=== PATIENT | male | born 1955 | race Caucasian/White ===

== ENCOUNTER 2024-07-29 16:11 | Emergency (ER) | payer MEDICARE ==
[~2024-07-29] VITALS: Ht 177.8 cm; Wt 90.7 kg
[2024-07-29] MEDS ORDERED: Diphth,Pertuss(Acell),Tet Vac 0.5 ML VIAL IM ONE (16:55)
[2024-07-29] MEDS ORDERED: Trimethoprim/Sulfamethoxazole DS Tab PO ONE (17:35)
[2024-07-29] MEDS ORDERED: SULTRIDS PO (17:47)
== END 2024-07-29 18:09 | disposition home or self-care (01) ==
LOC: ER 16:11
DX: L02.413 Cutaneous abscess of right upper limb (principal); E11.65 Type 2 diabetes mellitus with hyperglycemia
CPT/HCPCS: 10060; 82947; 87070; 87075; 87077; 87147; 87185; 87186; 87205; 90471; 90715; 99283-25; A9270

== ENCOUNTER 2024-12-25 12:16 | Emergency (ER) | payer MEDICARE ==
[~2024-12-25] VITALS: Ht 177.8 cm; Wt 86.2 kg
[2024-12-25 13:07] LABS: BASOPHILS ABSOLUTE AUTO 0.02 K/mm3 (0.00-0.23); BASOPHILS PERCENT AUTO 0 % (0-2); EOSINOPHILS ABSOLUTE AUTO 0.01 K/mm3 (0.00-0.68); EOSINOPHILS PERCENT AUTO 0 % (0-6); Hematocrit 31.1 % (37.0-53.0); Hemoglobin 10.5 g/dL (13.5-17.5); IMMATURE GRAN ABSOLUTE AUTO 0.05 K/mm3 (0.00-0.10); IMMATURE GRAN PERCENT AUTO 1 % (0-1); LYMPHOCYTES ABSOLUTE AUTO 0.57 K/mm3 (0.84-5.20); LYMPHOCYTES PERCENT AUTO 8 % (21-46); MONOCYTES ABSOLUTE AUTO 0.50 K/mm3 (0.16-1.47); MONOCYTES PERCENT AUTO 7 % (4-13); Mean Corpuscular HGB Conc 33.8 g/dL (31.5-36.5); Mean Corpuscular Volume 93 fL (80-100); NEUTROPHILS ABSOLUTE AUTO 6.24 K/mm3 (1.96-9.15); NEUTROPHILS PERCENT AUTO 84 % (41-73); NRBC ABSOLUTE 0.00 K/mm3 (0.00-0.02); NRBC Auto 0.0 /100 WBC (0.0-0.2); Platelet Count 97 K/mm3 (150-400); RDW Coefficient Variation 13.9 % (11.7-14.2); RDW Standard Deviation 46.6 fL (35.1-46.3); pH Blood Venous 7.27 (7.34-7.37)
[2024-12-25 14:21] LABS: Alanine Aminotransfer (ALT/SGP 57.0 U/L (12-78); Albumin, Blood 2.7 g/dL (3.4-5.0); Albumin/Globulin Ratio 1.0 (0.8-1.8); Anion Gap 12.0 mmol/L (3-11); Aspartate Aminotrans (AST/SGOT 50.0 U/L (12-37); Bilirubin, Total 1.1 mg/dL (0.1-1.0); Blood Urea Nitrogen 54.0 mg/dL (8-24); CO2, Blood 21.0 mmol/L (21-32); Calcium, Blood 9.0 mg/dL (8.5-10.1); Chloride, Blood 107.0 mmol/L (98-108); Creatinine, Blood 0.76 mg/dL (0.60-1.20); Globulin, Blood 2.8 g/dL (2.2-4.0); Glucose, Blood 406.0 mg/dL (70-99); Potassium, Blood 5.3 mmol/L (3.5-5.5); Sodium, Blood 135.0 mmol/L (136-145); Total Protein, Blood 5.5 g/dL (6.4-8.2)
[2024-12-25] MEDS ORDERED: Insulin Human Lispro 100 Units/ML 3ML Syringe SC ONE ×2 (14:45→16:35)
[2024-12-25] MEDS ORDERED: Insulin Glargine-Yfgn 100 Unit/mL 3 ML SYR SC ONE (14:45)
[2024-12-25] MEDS ORDERED: Insulin Glargine 100 Unit/ML 3 ML SYR SC ONE (14:50)
== END 2024-12-25 18:04 | disposition home or self-care (01) ==
LOC: ER 12:16
PROVIDERS: Physician Assistant
DX: E11.65 Type 2 diabetes mellitus with hyperglycemia (principal); E11.10 Type 2 diabetes mellitus with ketoacidosis without coma; L02.415 Cutaneous abscess of right lower limb
CPT/HCPCS: 80053; 82010; 82803; 82947; 83735; 85025; 93005; 93010; 99285-25; J1815

== ENCOUNTER 2024-12-25 23:02 | Emergency (ER) | payer MEDICARE ==
[~2024-12-25] VITALS: Ht 177.8 cm; Wt 89.4 kg
[2024-12-25] MEDS ORDERED: Metoclopramide HCl 5MG / ML 2ML Vial IV ONE (23:20)
[2024-12-25] MEDS ORDERED: Pantoprazole Sodium 40 MG Injection IV ONE (23:25)
[2024-12-25] MEDS ORDERED: CefTRIAXone Sodium 1,000 MG in NS 50 ML IV ONE (23:25)
[2024-12-25] MEDS ORDERED: Octreotide Acetate 500 MCG in NS 250 ML IV SCH (23:25)
[2024-12-25 23:27] LABS: BASOPHILS ABSOLUTE AUTO 0.05 K/mm3 (0.00-0.23); BASOPHILS PERCENT AUTO 0 % (0-2); EOSINOPHILS ABSOLUTE AUTO 0.07 K/mm3 (0.00-0.68); EOSINOPHILS PERCENT AUTO 1 % (0-6); Hematocrit 26.6 % (37.0-53.0); Hemoglobin 9.0 g/dL (13.5-17.5); IMMATURE GRAN ABSOLUTE AUTO 0.11 K/mm3 (0.00-0.10); IMMATURE GRAN PERCENT AUTO 1 % (0-1); LYMPHOCYTES ABSOLUTE AUTO 2.43 K/mm3 (0.84-5.20); LYMPHOCYTES PERCENT AUTO 16 % (21-46); MONOCYTES ABSOLUTE AUTO 1.89 K/mm3 (0.16-1.47); MONOCYTES PERCENT AUTO 13 % (4-13); Mean Corpuscular HGB Conc 33.8 g/dL (31.5-36.5); Mean Corpuscular Volume 92 fL (80-100); NEUTROPHILS ABSOLUTE AUTO 10.29 K/mm3 (1.96-9.15); NEUTROPHILS PERCENT AUTO 69 % (41-73); NRBC ABSOLUTE 0.00 K/mm3 (0.00-0.02); NRBC Auto 0.0 /100 WBC (0.0-0.2); Platelet Count 164 K/mm3 (150-400); RDW Coefficient Variation 14.3 % (11.7-14.2); RDW Standard Deviation 47.8 fL (35.1-46.3)
[2024-12-25 23:27] LABS: pH Blood Venous 7.35 (7.34-7.37)
[2024-12-25 23:42] LABS: Magnesium, Blood 2.1 mg/dL (1.6-2.4); Prothrombin Time Results 13.8 Sec (9.7-11.5)
[2024-12-25 23:43] LABS: Alanine Aminotransfer (ALT/SGP 49.0 U/L (12-78); Albumin, Blood 2.5 g/dL (3.4-5.0); Albumin/Globulin Ratio 1.0 (0.8-1.8); Anion Gap 17.0 mmol/L (3-11); Aspartate Aminotrans (AST/SGOT 38.0 U/L (12-37); Bilirubin, Total 1.0 mg/dL (0.1-1.0); Blood Urea Nitrogen 56.0 mg/dL (8-24); CO2, Blood 18.0 mmol/L (21-32); Calcium, Blood 9.1 mg/dL (8.5-10.1); Chloride, Blood 103.0 mmol/L (98-108); Creatinine, Blood 0.88 mg/dL (0.60-1.20); Globulin, Blood 2.4 g/dL (2.2-4.0); Glucose, Blood 451.0 mg/dL (70-99); Potassium, Blood 4.8 mmol/L (3.5-5.5); Sodium, Blood 133.0 mmol/L (136-145); Total Protein, Blood 4.9 g/dL (6.4-8.2)
[2024-12-26] MEDS ORDERED: Insulin Regular 100 Unit/ML 1ML Dose IV ONE (00:30)
[2024-12-26 02:47] LABS: Calcium, Ionized (POC) 1.25 mmol/L (1.10-1.46); Chloride (POC) 101 mmol/L (98-108); Creatinine (POC) 0.9 mg/dL (0.8-1.3); Glucose (ISTAT POC) 380 mg/dL (70-99); Hematocrit (POC) 20.0 % (41.0-53.0); Hemoglobin (POC) 6.8 g/dL (13.5-17.5); Potassium (POC) 5.3 mmol/L (3.5-5.5); Sodium (POC) 133 mmol/L (135-148); Total CO2 (POC) 17 mmol/L (21-32)
[2024-12-26 02:56] LABS: Hematocrit 22.0 % (37.0-53.0); Hemoglobin 7.6 g/dL (13.5-17.5); Mean Corpuscular HGB Conc 34.5 g/dL (31.5-36.5); Mean Corpuscular Volume 91 fL (80-100); NRBC ABSOLUTE 0.00 K/mm3 (0.00-0.02); NRBC Auto 0.0 /100 WBC (0.0-0.2); Platelet Count 123 K/mm3 (150-400); RDW Coefficient Variation 14.2 % (11.7-14.2); RDW Standard Deviation 47.0 fL (35.1-46.3)
[2024-12-26] MEDS ORDERED: NS 1,000 ML IV SCH (03:55)
== END 2024-12-26 05:15 | disposition home or self-care (01) ==
LOC: ER 23:02
PROVIDERS: Student in an Organized Health Care Education/Training Program
DX: K92.0 Hematemesis (principal); K92.1 Melena; D62 Acute posthemorrhagic anemia; E11.65 Type 2 diabetes mellitus with hyperglycemia; K74.60 Unspecified cirrhosis of liver; Z88.0 Allergy status to penicillin; Z79.899 Other long term (current) drug therapy
CPT/HCPCS: 36430; 74177; 80047; 80053; 82010; 82803; 82947; 83690; 83735; 85014; 85025; 85027; 85610; 85730; 86850; 86900; 86901; 86923; 93005; 93010; 96365; 96366; 96368; 96375; 96376; 99285-25; J0696; J1790; J1815; J2354; J2470; J2765; J7030; J7050; J7120; P9016; Q9967

== ENCOUNTER → 2024-12-25 | Outpatient (CLI) | payer MEDICARE ==
[~2024-12-25] MED LIST: SULTRIDS PO
[2024-12-25 10:59] LABS: BASOPHILS ABSOLUTE AUTO 0.03 K/mm3 (0.00-0.23); BASOPHILS PERCENT AUTO 0 % (0-2); EOSINOPHILS ABSOLUTE AUTO 0.01 K/mm3 (0.00-0.68); EOSINOPHILS PERCENT AUTO 0 % (0-6); Hematocrit 31.7 % (37.0-53.0); Hemoglobin 10.9 g/dL (13.5-17.5); IMMATURE GRAN ABSOLUTE AUTO 0.08 K/mm3 (0.00-0.10); IMMATURE GRAN PERCENT AUTO 1 % (0-1); LYMPHOCYTES ABSOLUTE AUTO 0.88 K/mm3 (0.84-5.20); LYMPHOCYTES PERCENT AUTO 10 % (21-46); MONOCYTES ABSOLUTE AUTO 0.51 K/mm3 (0.16-1.47); MONOCYTES PERCENT AUTO 6 % (4-13); Mean Corpuscular HGB Conc 34.4 g/dL (31.5-36.5); Mean Corpuscular Volume 89 fL (80-100); NEUTROPHILS ABSOLUTE AUTO 7.15 K/mm3 (1.96-9.15); NEUTROPHILS PERCENT AUTO 83 % (41-73); NRBC ABSOLUTE 0.00 K/mm3 (0.00-0.02); NRBC Auto 0.0 /100 WBC (0.0-0.2); Platelet Count 125 K/mm3 (150-400); RDW Coefficient Variation 13.7 % (11.7-14.2); RDW Standard Deviation 44.8 fL (35.1-46.3)
[2024-12-25 11:08] LABS: Alanine Aminotransfer (ALT/SGP 57.0 U/L (12-78); Albumin, Blood 2.7 g/dL (3.4-5.0); Albumin/Globulin Ratio 0.9 (0.8-1.8); Anion Gap 20.0 mmol/L (6-16); Aspartate Aminotrans (AST/SGOT 46.0 U/L (12-37); Bilirubin, Total 1.3 mg/dL (0.1-1.0); Blood Urea Nitrogen 58.0 mg/dL (8-24); CO2, Blood 20.0 mmol/L (21-32); Calcium, Blood 9.5 mg/dL (8.5-10.1); Chloride, Blood 102.0 mmol/L (98-108); Creatinine, Blood 1.27 mg/dL (0.60-1.20); Globulin, Blood 3.1 g/dL (2.2-4.0); Glucose, Blood 438.0 mg/dL (70-99); Potassium, Blood 5.4 mmol/L (3.5-5.5); Sodium, Blood 137.0 mmol/L (136-145); Total Protein, Blood 5.8 g/dL (6.4-8.2)
== END | disposition home or self-care (01) ==
LOC: LAB SHORT 10:55 → LAB 10:55
PROVIDERS: Family Medicine
DX: E11.65 Type 2 diabetes mellitus with hyperglycemia (principal)
CPT/HCPCS: 80053; 83735; 85025

== ENCOUNTER 2025-02-09 15:57 | Observation (INO) | payer MEDICARE ==
[~2025-02-09] VITALS: Ht 177.8 cm; Wt 78.6 kg
[2025-02-09 16:31] LABS: BASOPHILS ABSOLUTE AUTO 0.02 K/mm3 (0.00-0.23); BASOPHILS PERCENT AUTO 1 % (0-2); EOSINOPHILS ABSOLUTE AUTO 0.04 K/mm3 (0.00-0.68); EOSINOPHILS PERCENT AUTO 2 % (0-6); Hematocrit 30.6 % (37.0-53.0); Hemoglobin 10.0 g/dL (13.5-17.5); IMMATURE GRAN ABSOLUTE AUTO 0.01 K/mm3 (0.00-0.10); IMMATURE GRAN PERCENT AUTO 0 % (0-1); LYMPHOCYTES ABSOLUTE AUTO 0.48 K/mm3 (0.84-5.20); LYMPHOCYTES PERCENT AUTO 19 % (21-46); MONOCYTES ABSOLUTE AUTO 0.23 K/mm3 (0.16-1.47); MONOCYTES PERCENT AUTO 9 % (4-13); Mean Corpuscular HGB Conc 32.7 g/dL (31.5-36.5); Mean Corpuscular Volume 94 fL (80-100); NEUTROPHILS ABSOLUTE AUTO 1.79 K/mm3 (1.96-9.15); NEUTROPHILS PERCENT AUTO 70 % (41-73); NRBC ABSOLUTE 0.00 K/mm3 (0.00-0.02); NRBC Auto 0.0 /100 WBC (0.0-0.2); Platelet Count 72 K/mm3 (150-400); RDW Coefficient Variation 14.9 % (11.7-14.2); RDW Standard Deviation 51.8 fL (35.1-46.3)
[2025-02-09 16:54] LABS: Alanine Aminotransfer (ALT/SGP 50.0 U/L (12-78); Albumin, Blood 3.2 g/dL (3.4-5.0); Albumin/Globulin Ratio 0.9 (0.8-1.8); Anion Gap 13.0 mmol/L (3-11); Aspartate Aminotrans (AST/SGOT 50.0 U/L (12-37); Bilirubin, Total 0.7 mg/dL (0.1-1.0); Blood Urea Nitrogen 31.0 mg/dL (8-24); CO2, Blood 20.0 mmol/L (21-32); Calcium, Blood 9.4 mg/dL (8.5-10.1); Chloride, Blood 108.0 mmol/L (98-108); Creatinine, Blood 0.89 mg/dL (0.60-1.20); Globulin, Blood 3.6 g/dL (2.2-4.0); Glucose, Blood 280.0 mg/dL (70-99); Potassium, Blood 3.7 mmol/L (3.5-5.5); Sodium, Blood 137.0 mmol/L (136-145); Total Protein, Blood 6.8 g/dL (6.4-8.2)
[2025-02-09 17:02] LABS: Source, Urine Clean Catch
[2025-02-09] MEDS ORDERED: NS 1,000 ML IV SCH ×2 (17:10→18:55)
[2025-02-09 17:18] LABS: Bilirubin, Urine Neg (Neg); Glucose Qualitative, Urine 2+ (Neg); Ketones, Urine Neg (Neg); Leukocyte Esterase, Urine Neg (Neg); Protein, Urine Neg (Neg); Specific Gravity, Urine 1.010 (1.003-1.022); Urobilinogen, Urine NORM (Normal)
[2025-02-09 17:27] LABS: Color, Urine Pale Yellow (P-Yellow)
[2025-02-09] MEDS ORDERED: SENNA LAXATIVE8.6 MG PO (17:49)
[2025-02-09] MEDS ORDERED: FOLI1 PO (17:49)
[2025-02-09] MEDS ORDERED: AMARYL4 M1 PO (17:50)
[2025-02-09] MEDS ORDERED: SPIR50 PO (17:51)
[2025-02-09] MEDS ORDERED: PANT40 PO ×2 (17:51→22:04)
[2025-02-09] MEDS ORDERED: INSULANPEN SC ×2 (17:51→21:03)
[2025-02-09] MEDS ORDERED: TORSE20 PO (17:52)
[2025-02-09] MEDS ORDERED: GABA100 PO (17:52)
[2025-02-09] MEDS ORDERED: METF500 PO (17:55)
[2025-02-09] MEDS ORDERED: LACT10SY PO ×2 (17:55→21:04)
[2025-02-09] MEDS ORDERED: MULTIPLE VITAM1 EACH PO (17:55)
[2025-02-09] MEDS ORDERED: TAMS.4ER PO (17:56)
[2025-02-09] MEDS ORDERED: Vitamin B-150 MG (17:56)
[2025-02-09] MEDS ORDERED: Prinivil10 MG PO (17:56)
[2025-02-09] MEDS ORDERED: Ondansetron HCl 2 MG / ML 2ML Vial IV PRN (18:55)
[2025-02-09] MEDS ORDERED: FLU VACC TS2025(65UP)/MF59C/PF 45 MCG/0.5 ML SYRINGE IM SCH (19:10)
--- NOTE | 2025-02-09 20:26 | NUR ---
RECEIVED REPORT FROM ED SHRUTHI REYES.
[2025-02-09 20:50] VITALS: BP 141/60
--- NOTE | 2025-02-09 20:50 | NUR ---
PT ARRIVED TO ROOM 345 AT 2049. HERE FOR ALTERED MENTAL STATUS/HEPATIC ENCEPHALOPATHY. A&OX1 TO SELF ONLY, CONFUSED AT TIMES. 1PA W FWW TO BSC. INTERMITTENTLY INCONTINENT. LAST BM 02/09. L HAND PIV, CURRENTLY RUNNING NS @ 75 X 1 BAG. ON ROOM AIR. HE HAS A R MILLAN WOUND/ULCER. SEEING WOUND CARE AT HOME. WOUND CARE ORDER PLACED. NEW DRESSING PLACED ON ADMISSION WITH CALCIUM ALGINATE AND MEPILEX. CONSISTENT CARB DIET. ACHS. 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 SPEECH IS SLOW BUT APPROPRIATE. LACTIC ACID DOWN TO 2.7 FROM 5.0. SKIN IS SLIGHTLY JAUNDICED. NO ABDOMINAL DISTENTION NOTED. AMMONIA IS HIGH AT 84. RECENTLY DISCHARGED FROM [facility] FOR UGI SIMILAR PROBLEMS. (STEVE) AT BEDSIDE. VSS. BED IN LOWEST POSITION. BED ALARM ON. CALL LIGHT IN REACH.
[2025-02-09] MEDS ORDERED: Insulin Human Lispro 100 Units/ML 3ML Syringe SC SCH (21:00)
[2025-02-09] MEDS ORDERED: Insulin Glargine-Yfgn 100 Unit/mL 3 ML SYR SC SCH (21:00)
[2025-02-09] MEDS ORDERED: TRAZ50 PO (21:06)
[2025-02-09] MEDS ORDERED: VITAMIN B-1250 MG PO (21:07)
[2025-02-09] MEDS ORDERED: PIOG15 PO (21:08)
[2025-02-09] MEDS ORDERED: SOLI5 (21:09)
[2025-02-10 03:23] VITALS: BP 131/66
--- NOTE | 2025-02-10 04:30 | NUR ---
PT REMAINS A&OX1, TO SELF ONLY. STILL CONFUSED AT TIMES BUT VERY PLEASANT AND COOPERATIVE WITH CARES. SLEPT MOST OF THE NIGHT. VERY HARD OF HEARING WHEN HEARING AIDS ARE OUT. AT BEDSIDE THROUGHOUT THE NIGHT AND VERY ATTENTIVE TO PT. NEW L WRIST PIV RUNNING NS AT 75 X 1 BAG. VSS. BED IN LOWEST POSITION. CALL LIGHT IN REACH.
--- NOTE | 2025-02-10 04:34 | NUR ---
SHIFT SUMMARY PT ALERT AND ORIENTED. VERY PLEASANT AND COOPERATIVE WITH CARES. ABLE TO MAKE NEEDS KNOWN. PT SLEPT MOST OF THE NIGHT. PT INDEPENDENT IN ROOM. DENIES PAIN. USING URINAL APPROPRIATELY. VSS. BED IN LOWEST POSITION. CALL LIGHT WITHIN REACH.
[2025-02-10 05:35] LABS: Hematocrit 29.5 % (37.0-53.0); Hemoglobin 9.8 g/dL (13.5-17.5); Mean Corpuscular HGB Conc 33.2 g/dL (31.5-36.5); Mean Corpuscular Volume 91 fL (80-100); NRBC ABSOLUTE 0.00 K/mm3 (0.00-0.02); NRBC Auto 0.0 /100 WBC (0.0-0.2); Platelet Count 66 K/mm3 (150-400); RDW Coefficient Variation 14.6 % (11.7-14.2); RDW Standard Deviation 49.7 fL (35.1-46.3)
[2025-02-10 07:33] VITALS: BP 129/71
[2025-02-10] MEDS ORDERED: Folic Acid 1 MG TAB PO SCH (09:00)
[2025-02-10] MEDS ORDERED: Enoxaparin 40 MG/0.4 ML SYR SC SCH (09:00)
[2025-02-10 16:21] VITALS: BP 125/83
== END 2025-02-10 17:22 | disposition home or self-care (01) ==
LOC: ER 15:57 → MEDS 15:58
PROVIDERS: Emergency Medicine; Nurse Practitioner Acute Care; ADMIT Internal Medicine
DX: K76.82 Hepatic encephalopathy (principal); K70.40 Alcoholic hepatic failure without coma; K70.30 Alcoholic cirrhosis of liver without ascites; E11.65 Type 2 diabetes mellitus with hyperglycemia; D61.818 Other pancytopenia; N40.0 Benign prostatic hyperplasia without lower urinary tract symptoms; I10 Essential (primary) hypertension; E87.20 Acidosis, unspecified; Z79.4 Long term (current) use of insulin; Z79.84 Long term (current) use of oral hypoglycemic drugs; Z79.899 Other long term (current) drug therapy; Z88.0 Allergy status to penicillin
CPT/HCPCS: 36415; 80053; 81003; 82140; 82947; 83605; 85025; 85027; 86850; 86900; 86901; 93005; 93010; 96360; 96372; 99285-25; A9270; G0378; J1650; J1815; J7030

== ENCOUNTER 2025-02-15 10:39 | Observation (INO) | payer MEDICARE ==
[~2025-02-15] VITALS: Ht 182.9 cm; Wt 81.7 kg
[~2025-02-15 10:39] MED LIST changes: +AMARYL4 M1 PO; +FOLI1 PO; +GABA100 PO; +INSULANPEN SC; +LACT10SY PO; +METF500 PO; +MULTIPLE VITAM1 EACH PO; +PANT40 PO; +PIOG15 PO; +Prinivil10 MG PO; +SENNA LAXATIVE8.6 MG PO; +SOLI5; +SPIR50 PO; +TAMS.4ER PO; +TORSE20 PO; +TRAZ50 PO; +VITAMIN B-1250 MG PO; +Vitamin B-150 MG
[2025-02-15 12:28] LABS: BASOPHILS ABSOLUTE AUTO 0.02 K/mm3 (0.00-0.23); BASOPHILS PERCENT AUTO 1 % (0-2); EOSINOPHILS ABSOLUTE AUTO 0.08 K/mm3 (0.00-0.68); EOSINOPHILS PERCENT AUTO 3 % (0-6); Hematocrit 34.4 % (37.0-53.0); Hemoglobin 11.4 g/dL (13.5-17.5); IMMATURE GRAN ABSOLUTE AUTO 0.01 K/mm3 (0.00-0.10); IMMATURE GRAN PERCENT AUTO 0 % (0-1); LYMPHOCYTES ABSOLUTE AUTO 0.54 K/mm3 (0.84-5.20); LYMPHOCYTES PERCENT AUTO 21 % (21-46); MONOCYTES ABSOLUTE AUTO 0.33 K/mm3 (0.16-1.47); MONOCYTES PERCENT AUTO 13 % (4-13); Mean Corpuscular HGB Conc 33.1 g/dL (31.5-36.5); Mean Corpuscular Volume 91 fL (80-100); NEUTROPHILS ABSOLUTE AUTO 1.66 K/mm3 (1.96-9.15); NEUTROPHILS PERCENT AUTO 63 % (41-73); NRBC ABSOLUTE 0.00 K/mm3 (0.00-0.02); NRBC Auto 0.0 /100 WBC (0.0-0.2); Platelet Count 64 K/mm3 (150-400); RDW Coefficient Variation 14.2 % (11.7-14.2); RDW Standard Deviation 47.8 fL (35.1-46.3)
[2025-02-15 12:46] LABS: Alanine Aminotransfer (ALT/SGP 64.0 U/L (12-78); Albumin, Blood 3.3 g/dL (3.4-5.0); Albumin/Globulin Ratio 0.9 (0.8-1.8); Anion Gap 9.0 mmol/L (3-11); Aspartate Aminotrans (AST/SGOT 54.0 U/L (12-37); Bilirubin, Total 1.2 mg/dL (0.1-1.0); Blood Urea Nitrogen 18.0 mg/dL (8-24); CO2, Blood 22.0 mmol/L (21-32); Calcium, Blood 9.5 mg/dL (8.5-10.1); Chloride, Blood 113.0 mmol/L (98-108); Creatinine, Blood 0.75 mg/dL (0.60-1.20); Globulin, Blood 3.5 g/dL (2.2-4.0); Glucose, Blood 188.0 mg/dL (70-99); Potassium, Blood 4.0 mmol/L (3.5-5.5); Sodium, Blood 140.0 mmol/L (136-145); Total Protein, Blood 6.8 g/dL (6.4-8.2)
[2025-02-15 12:54] LABS: Source, Urine Clean Catch
[2025-02-15 13:04] LABS: Bilirubin, Urine Neg (Neg); Color, Urine Yellow (P-Yellow); Glucose Qualitative, Urine Neg (Neg); Ketones, Urine Neg (Neg); Leukocyte Esterase, Urine Neg (Neg); Protein, Urine Neg (Neg); Specific Gravity, Urine 1.015 (1.003-1.022); Urobilinogen, Urine NORM (Normal)
[2025-02-15] MEDS ORDERED: FLU VACC TS2025(65UP)/MF59C/PF 45 MCG/0.5 ML SYRINGE IM SCH (16:15)
[2025-02-15 20:20] VITALS: BP 135/52
[2025-02-16 03:37] VITALS: BP 139/67
--- NOTE | 2025-02-16 04:49 | NUR ---
Floor admission/shift summary: Received this 69 yo male from the ED during the start of the shift. Pt is alert and upright, speech is clear and is able to make adequate needs known. He is A&O to self place & family members with him at the time of admission to the floor, he is mixed-up with the date time and situation, pt. is pleasant and in good spirits, he denies any acute GI/generalized pain/discomfort, all his VS are w/in his baseline readings, he is able to stand and pivot from the gurney to his bed with moderate assist and guidance of 1 staff, he is continent of both B&B, he tolerated restaurant meal provided & po fluids well, continent of both B&B. Pt. is stable & in good spirits, resting with his call garland in reach & his spent the entire night with the pt.
[2025-02-16 06:32] LABS: BASOPHILS ABSOLUTE AUTO 0.02 K/mm3 (0.00-0.23); BASOPHILS PERCENT AUTO 1 % (0-2); EOSINOPHILS ABSOLUTE AUTO 0.06 K/mm3 (0.00-0.68); EOSINOPHILS PERCENT AUTO 3 % (0-6); Hematocrit 29.8 % (37.0-53.0); Hemoglobin 10.2 g/dL (13.5-17.5); IMMATURE GRAN ABSOLUTE AUTO 0.02 K/mm3 (0.00-0.10); IMMATURE GRAN PERCENT AUTO 1 % (0-1); LYMPHOCYTES ABSOLUTE AUTO 0.55 K/mm3 (0.84-5.20); LYMPHOCYTES PERCENT AUTO 24 % (21-46); MONOCYTES ABSOLUTE AUTO 0.28 K/mm3 (0.16-1.47); MONOCYTES PERCENT AUTO 12 % (4-13); Mean Corpuscular HGB Conc 34.2 g/dL (31.5-36.5); Mean Corpuscular Volume 90 fL (80-100); NEUTROPHILS ABSOLUTE AUTO 1.38 K/mm3 (1.96-9.15); NEUTROPHILS PERCENT AUTO 60 % (41-73); NRBC ABSOLUTE 0.00 K/mm3 (0.00-0.02); NRBC Auto 0.0 /100 WBC (0.0-0.2); Platelet Count 59 K/mm3 (150-400); RDW Coefficient Variation 14.2 % (11.7-14.2); RDW Standard Deviation 47.5 fL (35.1-46.3)
[2025-02-16 07:06] LABS: Alanine Aminotransfer (ALT/SGP 64.0 U/L (12-78); Albumin, Blood 3.0 g/dL (3.4-5.0); Albumin/Globulin Ratio 0.9 (0.8-1.8); Anion Gap 10.0 mmol/L (3-11); Aspartate Aminotrans (AST/SGOT 63.0 U/L (12-37); Bilirubin, Total 0.8 mg/dL (0.1-1.0); Blood Urea Nitrogen 22.0 mg/dL (8-24); CO2, Blood 20.0 mmol/L (21-32); Calcium, Blood 9.4 mg/dL (8.5-10.1); Chloride, Blood 111.0 mmol/L (98-108); Creatinine, Blood 0.71 mg/dL (0.60-1.20); Globulin, Blood 3.4 g/dL (2.2-4.0); Glucose, Blood 251.0 mg/dL (70-99); Magnesium, Blood 2.4 mg/dL (1.6-2.4); Potassium, Blood 4.1 mmol/L (3.5-5.5); Sodium, Blood 137.0 mmol/L (136-145); Total Protein, Blood 6.4 g/dL (6.4-8.2)
[2025-02-16 07:48] VITALS: BP 135/66
[2025-02-16] MEDS ORDERED: MetFORMIN HCl 500 mg PO SCH (08:00)
[2025-02-16] MEDS ORDERED: Insulin Glargine-Yfgn 100 Unit/mL 3 ML SYR SC SCH (09:00)
[2025-02-16] MEDS ORDERED: Polyethylene Glycol 3350 17 gm PO ONE (09:00)
[2025-02-16] MEDS ORDERED: TRAZ50 PO (10:17)
--- NOTE | 2025-02-16 13:25 | NUR ---
THIS RN NOTIFIED OF PT'S BLOOD GLUCOSE OF 373.
--- NOTE | 2025-02-16 14:00 | NUR ---
DISCHARGE NOTE PT D/C HOME AT 1355. PT AND PT'S PROVIDED W/ VERBAL AND WRITTEN INSTRUCTIONS AND REPORTED UNDERSTANDING. PT A&OX3, VSS, AMB W/ ASSIST, TOLERATING PO, VOIDING, AND DENIED PAIN. BELONGINGS WERE RETURNED AND PT ESCOURTED OUT VIA W/C BY COLLEEN HANSEN.
== END 2025-02-16 14:08 | disposition home or self-care (01) ==
LOC: ER 10:39 → ERHOLD 10:40 → MEDS 19:40
PROVIDERS: Physician Assistant; ADMIT Family Medicine
DX: K76.82 Hepatic encephalopathy (principal); K70.30 Alcoholic cirrhosis of liver without ascites; E11.9 Type 2 diabetes mellitus without complications; Z79.84 Long term (current) use of oral hypoglycemic drugs; Z79.4 Long term (current) use of insulin; Z88.0 Allergy status to penicillin
CPT/HCPCS: 36415; 70450; 71046; 80053; 81003; 82140; 82947; 83605; 83735; 85025; 92610; 93005; 93010; 97165; 97530; 99285-25; A9270; G0378; J1815